=== PATIENT | male | born 1940 | race Caucasian/White ===

== ENCOUNTER 2019-11-13 16:45 | Inpatient (IN) | payer OTHER ==
[~2019-11-13] VITALS: Ht 180.3 cm; Wt 193.7 kg
[~2019-11-13 16:45] MED LIST: ALLOPURINOL 30300 M2 PO; ASPIR 8181 M1 PO; COREG6.25 MG PO; COUMADIN 5 MG TA5 M1 PO; DIGOXIN250 MCG PO; EFFEXOR XR37.5 MG PO; ENTRESTO 24 MG1 EACH PO; FLOMAX0.4 MG PO; HYDROCODON-ACE1 EAC7 PO; K-DUR 20 MEQ T20 MEQ PO; LASIX 40 MG TAB40 M2 PO; MAGOX 400400 MG PO; MOBIC15 MG PO; OMEPRAZOLE40 MG PO; PREDNISONE10 MG PO; XANAX 0.5 MG0.5 MG PO
--- NOTE | 2019-11-13 17:21 | NUR ---
PATIENT ARRIVED ON UNIT AT 1600 WITH EMT'S - SLEEPING AT THE TIME. CALM AND QUIET. HAD LOOSE STOOL MOVEMENT AND STAFF CLEANED PATIENT UP - SKIN INTACT - ECCYMOSIS BRUISING BILATERALLY ON BOTH UPPER EXTREMITIES. PATIENT BROUGHT UP TO UNIT BYPASSING [facility]. COVID TESTING NOT DONE AT OUR FACILITY. PATIENT AWOKE AND HAD DINNER - ALERT TO SELF - ANSWERED SEVERAL QUESTIONS BUT THOUGHT PATTERN JUMBLED.
[2019-11-13 18:24] VITALS: BP 146/87
[2019-11-13 19:21] VITALS: BP 118/74
--- NOTE | 2019-11-14 00:13 | NUR ---
Assumed care of patient this pm shift. Patient in good spirits showing no signs of aggression. Patient was sitting in mileu during assessment. Patient denies hi/si. Patient is continent. Patients assessment shows clear breath sounds, active bowel sounds, and irregular heart rhythm. S1 s2 heard with auscultation. Patient was surprised to learn that he was staying the night. Patient shares some interesting stories with RN. Patient is alert and oriented to self and time. Patient is dressed neatly in clean clothes. We will continue to monitor.
[2019-11-14 08:39] LABS: CALCIUM 9.3 mg/dL (8.5-10.1); CREATININE 1.5 mg/dL (0.7-1.3); POTASSIUM 3.9 mmol/L (3.5-5.1)
--- NOTE | 2019-11-14 14:16 | NUR ---
PATIENT HAS BEEN AMBULATING AROUND - ALERT TO SELF - WANDERS INTO OTHERS ROOMS. EASILY REDIRECTED. AFFECT PLEASANT AND MOOD SMILING. PATIENT DOES NOT UNDERSTAND WHAT IS CONVEYED TO HIM. HAS KNEE DISCOMFORT AND NEEDS MONITORING TO UTILIZE WALKER - STAFF NOTICED ONE KNEE GAVE OUT WHILE WALKING. PATIENT TAKES MEDICATIONS WHOLE WITH VANILLA PUDDING. APPETITE POOR - RESTLESS - STAFF HAS BEEN ENCOURAGING TO SIT IN DINING AREA AND WATCH TV. CALLED AND HE SPOKE TO HER FOR SHORT TIME. CONVERSATION WENT WELL.
--- NOTE | 2019-11-14 16:25 | NUR ---
FACUNDO obtained hx from pt's daughter Dipti and Cara. Cara is pt's dpoa and has okayed for pt's care to be discussed with Dipti. Pt lives at home with his and sis n law, and has been aggressive with especially his . 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 He sometimes gets HH services through [facility], and Dipti said if he needs HH services again that is the provider they choose. SW team will continue to follow pt during his stay on this unti.
[2019-11-14 19:53] VITALS: BP 111/75
[2019-11-14 19:55] VITALS: BP 111/75
--- NOTE | 2019-11-14 21:05 | H ---
[facility] [address] [place] [address] HISTORY AND PHYSICAL Name: MALOU PITT Room #: 526A-A ADM IN M.R.#: [id number] Admission: 11/13/19 Attend Phys: Leroy Hedrick DO Discharge: Date of : 40 Report #: [id number] THIS REPORT FOR: cc: Kim Davenport MD,Kim Hedrick,Leroy Pollack DO ~ CC: Leroy Davenport DATE OF SERVICE: 11/13/2019 INPATIENT PSYCHIATRIC EVALUATION Date of admission and transfer from [facility] is 11/13/2019 ATTENDING PHYSICIAN: Leroy Hedrick DO. GANG LEADER: Dr. Curtis. SOURCES OF INFORMATION: Chart from [facility], brief interview with the patient, telephone conversation with his and daughter, Dipti. Time spent on this case exceeded 100 minutes, greater than 50% was review of records, coordination of care. HISTORY OF PRESENT ILLNESS: This is a 78-year-old male with a history of dementia, dating back approximately 8-9 years, who came to the [facility] ED on 11/06/2019 via EMS complaining of altered mental status, onset 3 days ago. EMS stated the patient had been having hallucinations and poor appetite. The patient was unable to answer how he was in the ER, where he came from. The patient's daughter, Dipti, stated that the patient is normally alert and oriented x 3. The patient started new medication recently and daughter thinks that could be the cause of the current events. The patient was noted to be weak for 2-4 days' duration. In speaking with the daughter today on the phone, the patient has been seeing bugs, change in size for about the last year, he is going blind. He has 2 different eye diseases, he sees unseen others and objects such as cows in the field. The and daughter describes that the patient having a massive heart operation 10 years ago, which included an ablation, aortic valve replacement, mitral valve repair and quintuple bypass surgery done at [facility]. Compounding things 6 months prior to the massive heart operation, his son of heart related on 07/21/2010. EDUCATIONAL HISTORY: The patient has a ninth grade education. He has no history of stroke. PAST MEDICAL HISTORY: Medical problems from the records at [facility] [address] [place] [address] HISTORY AND PHYSICAL Name: MALOU PITT Room #: 526A-A [facility] IN [facility]#: [id number] Admission: 11/13/19 Attend Phys: Leroy Hedrick DO Discharge: Date of : 40 Report #: [id number] CHF, systolic left ventricular ejection fraction 25%, 07/2018. Coronary artery disease, hypertension, pacemaker and defibrillator 04/2017, history of AFib, history of 3 stents prior to 2010. He has had a left knee replacement, plate in left hand, history of C. diff with fecal implant, psychiatric history of depression and anxiety, CKD stage 4, pulmonary hypertension, transaminitis. ALLERGIES: NOTED TO BE HALOPERIDOL, AMIODARONE, METAXALONE, SPIRONOLACTONE, STATINS, SULFA DRUGS. REVIEW OF SYSTEMS: I was unable to get a comprehensive review of systems from the patient. The patient was seen by Dr. Matos, Neurology, who wanted the patient to get neuropsych testing. He refused medication last night, so did not take Seroquel 50 mg or melatonin 3-5 mg. LABORATORY DATA: His blood cultures x [address] [facility]. Laboratories from [facility] from 11/12/2019, H and H 12.0 and 36.1, white count 8.6, platelet count 184. Sodium 143, potassium 3.4, chloride 105, bicarbonate 31, anion gap 7, BUN 19, creatinine 1.3. Estimated GFR 53, glucose 85, calcium 8.3, total bilirubin 1.2, AST 18, ALT 18, alkaline phosphatase 85, total protein 6.0, albumin 3.2. NT-proBNP last done 05/21/2019 was 4074. Urinalysis this admission on 11/08/2019 had some positive mucous casts, few bacteria, rbc's, trace leukocyte esterase, 3+ blood. Toxicology, digoxin was initially elevated at 2.4 and then was 1.7 and it was discontinued. MEDICATIONS: Medications the patient was on at [facility] include cholestyramine, lactobacillus, Seroquel which he apparently did take on 11/12/2019, tamsulosin 0.4 mg daily, Xarelto 15 mg daily, venlafaxine 37.5 mg daily, thiamine, probiotic, prednisone, potassium chloride, nitroglycerin, Coreg, allopurinol. Currently, the patient's medications at [facility] are Xarelto 15 mg p.o. daily, Effexor XR 37.5 mg p.o. daily, tamsulosin 0.4 mg p.o. daily, allopurinol 300 mg p.o. daily, prednisone 10 mg p.o. with breakfast, Coreg 3.125 mg b.i.d. with meals, potassium chloride 20 mEq p.o. b.i.d., otherwise are standard house PRNs. Dr. Curtis saw the patient evidently late today and has not put in a note at this point. PHYSICAL EXAMINATION: VITAL SIGNS: Right now, temperature 36.8, pulse 84, respirations 18, BP 118/74, O2 sat 95% on room air. MUSCULOSKELETAL: Normal gait and station. MENTAL STATUS EXAMINATION: This is a well-developed, ill-appearing male, appearing stated age. Attention limited. Concentration limited. Speech is normal rate. The patient was not oriented to most aspects of time, to place, poorly to situation. Denied SI or HI. Denied auditory, visual, or tactile [address] [address] HISTORY AND PHYSICAL Name: SWEETIEMALOU Maykel Room #: 526A-A [facility] IN ..#: [id number] Admission: 11/13/19 Attend Phys: Leroy Hedrick DO Discharge: Date of : 40 Report #: [id number] hallucinations. Memory not formally tested. Insight limited. Judgment limited. Mood and affect were congruent, happy, euthymic. Fund of knowledge below average. FORMULATION: A 78-year-old male transferred from [facility] for reported behavioral problems including continued confusion, impulsivity. PLAN: Evaluate, stabilize, obtain collateral. I spoke with the daughter, Dipti, at length. I have asked the hospitalist to decide if the patient needs Lasix. According to the daughter, he takes 80 mg a day scheduled. Regarding the psychiatric concerns, on a prescribed alprazolam form at this time. He has an allergy to HALDOL. I think we will try a low dose of scheduled Seroquel for delirium treatment. We will start on 12.5 mg 3 times a day. The goal of family is the patient to return home -daughter and are not interested in placement. STRENGTHS: He is insured, supportive family. WEAKNESSES: Very advanced physical disease including combined valvular disease, coronary artery disease, congestive heart failure. We will order a heart-healthy diet for him, so it is low in sodium. Again time spent on this case is greater than 100 minutes. <ELECTRONICALLY SIGNED> By: Leroy Hedrick DO 11/14/192104 51 24 Leroy Hedrick DO /nt
--- NOTE | 2019-11-15 03:43 | NUR ---
11-14-19 care transfered at 1914; 1954 Pt sitting in day room with eyes open. PT AAOx1, pt clam, pleasant, skin w/d. Observed pt gait and slow and unsteady and noted tremors UE, bi-lat. Pt denies pain and SI/HI. Approximately 2230 BINGO CLERK and librarian helper brouht to my attention that pt had a skin tear, noted left upper arm distal, superficial skin tear approximatley 3.5cm benjamin zero depth, scant amount of sanguineous drainage. Cleaned wound with NS and apply sterile dressing to wound. Several attempts to take pt to bed, pt refused to go to bed. Pt was placed in recliner and covered with blanket in day room. Please refer to nursing interventions for more information. Zero acute distress noted.
[2019-11-15 07:26] VITALS: BP 123/73
[2019-11-15 09:12] VITALS: BP 123/73
--- NOTE | 2019-11-15 09:18 | NUR ---
ASSUMED CARE AT 0700 THIS MORNING. PT. STABLE. HE IS SITTING IN A ADRIÁN CHAIR. HE IS SITTING WITH HIS EYES CLOSED AT BREAKFAST. STAFF ASSISTING HIM TO EAT HIS MEAL. MEDICATIONS CRUSHED AND PUT IN YOUGART. HE TOOK THEM WITHOUT PROBLEMS.
--- NOTE | 2019-11-15 10:42 | NUR ---
Nutrition: pt admitted to [facility] unit with increased confusion, agitation and hallucinations. Notified of low safia score. Skin is intact but with bilateral ecchymosis/bruising to upper extremities. Current weight 427# is error and nsg will re-weigh today. Wts per hx in 2017 were 198#. Unable to interview pt due to current state. PO as been highly variable from refuse to 100% since admi on 11/12. Nsg reports needs fed, ate 50% breakfast this am. RD will offer ensure pudding or magic cup on trays due to suboptimal intake at times which is likely related to current condition. Will follow weight/po trends. Place as low nutrition risk.
[2019-11-15] MEDS ORDERED: XARELTO15 MG PO (11:00)
[2019-11-15] MEDS ORDERED: CARVEDILOL3.125 MG PO (11:00)
[2019-11-15] MEDS ORDERED: SEROQUEL 25 MG25 M1 PO (11:01)
--- NOTE | 2019-11-15 21:53 | D ---
[facility] [address] [place] [address] DISCHARGE SUMMARY Name: MALOU PITT Room #: 526A-A [facility] IN M.R.#: [id number] Admission: 11/13/19 Attend Phys: Leroy Hedrick DO Discharge: 11/15/19 Date of : 40 Report #: [id number] THIS REPORT FOR: cc: Kim Davenport MD,Kim Hedrick,Leroy Pollack DO ~ THIS REPORT FOR: //name// CC: Leroy Davenport DATE OF SERVICE: 11/15/2019 INPATIENT PSYCHIATRIC DISCHARGE SUMMARY ATTENDING PHYSICIAN: Leroy Hedrick DO AIRCRAFT PILOT: Dr. Curtis. 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 MEDICAL COMORBIDITIES: The patient has numerous medical comorbidities including probable acute systolic heart failure, last EF 25-30%, hypertension, acute on chronic renal failure, hypokalemia. DISCHARGE PLAN: The patient is discharging to the general medical floor at [facility]. He also meant to say has a fever, temperature 99.8 this morning. DIET: 2 gram sodium a day, heart healthy. ACTIVITY LEVEL: As tolerated. DISCHARGE MEDICATIONS: Rivaroxaban, which is Xarelto 15 mg p.o. daily with dinner and Coreg 3.125 mg p.o. b.i.d.; Seroquel 25 mg at 0900, 1500, 2100 hours; potassium chloride 20 mEq p.o. b.i.d.; sacubitril/valsartan 24/26 mg 1 tab p.o. b.i.d., allopurinol 300 mg p.o. daily, prednisone 10 mg p.o. daily, tamsulosin 0.4 mg p.o. daily. The patient's prednisone is for reportedly an autoimmune condition. DISCHARGE LABORATORY DATA: Within normal limits except BUN 32, creatinine 1.6, glucose 126, total bilirubin 1.1, ALT 17, CRP 126.9, NT-proBNP 11,211, total protein 6.8, albumin 3.4, vitamin B12 of 772, folate 51.5, TSH 0.746. REASON FOR ADMISSION: Transferred from [facility] due to confusion, [facility] [address] [address] DISCHARGE SUMMARY Name: MALOU PITT Room #: 526A-A [facility]#: [id number] Admission: 11/13/19 Attend Phys: Leroy Hedrick DO Discharge: 11/15/19 Date of : 40 Report #: [id number] agitation at times, concern for behavioral disturbance and dementia. HOSPITAL COURSE: The patient was admitted to the Geriatric Psychiatry Unit. It was initially attempted to only order essential medications, as I wanted to see how the patient tolerated these and behavior. He was really only on the unit for 1 full day where he was pleasant, in no distress. This morning, temperature 99.[address] Curtis was paged to evaluate for coronavirus concerns. There was also a concern of somewhat lung sounds, even though there were not overt signs of congestive heart failure. PHYSICAL EXAMINATION: VITAL SIGNS: At time of discharge today, temperature 37.7, pulse 76, respirations 24, BP 123/73, O2 sat 93%. MUSCULOSKELETAL: Gait not tested, disheveled with atrophy, seen in Pat chair. MENTAL STATUS EXAMINATION: This is a well-developed, ill-appearing male apparently stated age. Attention fair. Concentration impaired. Speech slightly slowed. Thought process linear and very limited. Thought content, poverty of thought. Some psychomotor agitation, no psychomotor retardation. Unable to test fully for SI or HI, or overt hallucinations. Insight limited. Judgment limited. Fund of knowledge is impaired. PROGNOSIS: For this patient is guarded given her degenerative disease, multiple medical morbidities. I did call the patient's daughter, Dipti, to discuss his transfer to the medical floor. She indicated she definitely wanted the patient to be DNR at this point. She also indicated that she wanted him to be on such things as the probiotic, alprazolam. I texted Dr. Curtis the daughter's number. She has called her and has squared the things away for his medical admission. I will be happy to consult on the patient once his coronavirus concern is ruled out to provide consultation liaison psychiatry. <ELECTRONICALLY SIGNED> By: Leroy Hedrick DO 11/15/19 2153 [id number] 19 Leroy Hedrick DO /nt
== END 2019-11-15 13:11 | disposition home health service (06) | DRG 884 ==
LOC: SBH 16:45
PROVIDERS: Nurse Practitioner Family; ADMIT Psychiatry & Neurology Psychiatry
DX: F01.51 Vascular dementia, unspecified severity, with behavioral disturbance (principal); N17.9 Acute kidney failure, unspecified; I50.21 Acute systolic (congestive) heart failure; I13.0 Hypertensive heart and chronic kidney disease with heart failure and stage 1 through stage 4 chronic kidney disease, or unspecified chronic kidney disease; I25.10 Atherosclerotic heart disease of native coronary artery without angina pectoris; I48.91 Unspecified atrial fibrillation; N18.2 Chronic kidney disease, stage 2 (mild); E87.6 Hypokalemia; N40.0 Benign prostatic hyperplasia without lower urinary tract symptoms; Z96.652 Presence of left artificial knee joint; F32.9 Major depressive disorder, single episode, unspecified; F41.9 Anxiety disorder, unspecified; I25.2 Old myocardial infarction; Z88.8 Allergy status to other drugs, medicaments and biological substances; Z95.810 Presence of automatic (implantable) cardiac defibrillator; Z88.1 Allergy status to other antibiotic agents; Z88.2 Allergy status to sulfonamides; Z87.891 Personal history of nicotine dependence; Z95.5 Presence of coronary angioplasty implant and graft
CPT/HCPCS: 10880

== ENCOUNTER 2019-11-15 12:32 | Inpatient (IN) | payer OTHER ==
[~2019-11-15] VITALS: Ht 170.2 cm; Wt 81.7 kg
[~2019-11-15 12:32] MED LIST changes: +CARVEDILOL3.125 MG PO; +SEROQUEL 25 MG25 M1 PO; +XARELTO15 MG PO
[2019-11-15 13:35] VITALS: BP 113/61
[2019-11-15 13:36] VITALS: BP 113/61
[2019-11-15 14:58] LABS: HEMATOCRIT 34.8 % (42.0-52.0); HEMOGLOBIN 11.5 gm/dL (14.0-18.0); MCH 30.3 pg (26.0-34.0); MCHC 32.9 g/dL (28.0-37.0); MCV 92.2 fL (80.0-100.0); PLATELET COUNT 198 thou/uL (150-400); RBC 3.78 mil/uL (4.50-6.00); WBC 8.5 thou/uL (4.0-11.0)
[2019-11-15 15:24] LABS: ALBUMIN 3.4 g/dL (3.4-5.0); CALCIUM 9.1 mg/dL (8.5-10.1); CREATININE 1.6 mg/dL (0.7-1.3); POTASSIUM 4.4 mmol/L (3.5-5.1); TOTAL BILIRUBIN 1.1 mg/dL (<0.1-1.0); TOTAL PROTEIN 6.8 g/dL (6.4-8.2)
[2019-11-15 15:43] LABS: ABSOLUTE NEUTROPHILS 6.9 thou/uL (1.4-8.2); PLATELET ESTIMATE NORMAL
[2019-11-15 15:55] LABS: TSH 0.746 uIU/mL (0.358-3.740)
[2019-11-15 16:28] LABS: FOLIC ACID 51.5 ng/mL (8.6-58.9)
[2019-11-15 21:00] VITALS: BP 113/70
[2019-11-15 23:45] VITALS: BP 114/64
[2019-11-16 04:10] VITALS: BP 108/60
--- NOTE | 2019-11-16 05:30 | NUR ---
PT MAKING SLOW PROGRESS TOWARDS GOALS. LUNGS CTA, DIMINISHED THROUGHOUT THE NIGHT. NO COUGH NOTED. PT INCREASED WOB NOTED WHEN PT OBSERVED WALKING TO THE TOILET OR SPEAKING.
[2019-11-16 08:38] VITALS: BP 97/55
[2019-11-16 10:52] LABS: CALCIUM 8.7 mg/dL (8.5-10.1); CREATININE 1.6 mg/dL (0.7-1.3)
[2019-11-16 10:56] LABS: POTASSIUM 3.2 mmol/L (3.5-5.1)
--- NOTE | 2019-11-16 12:44 | 2DMMODE ---
[facility] [place] [address] 2 D/M-MODE ECHOCARDIOGRAM Name: MALOU PITT Maykel Room #: 359-P ADM IN M.R.#: [id number] Admission: 11/15/19 Attend Phys: Jesus Alberto Curtis MD Discharge: Date of : 40 Report #: [id number] THIS REPORT FOR: cc: Kim Davenport MD, Pamela MD Lammoglia, Francisco J. MD ~ APPROVED REPORT Study performed: 11/16/2019 09:41:40 EXAM: Comprehensive 2D, Doppler, and color-flow Echocardiogram Patient Location: Bedside Room #: 359 Status: routine BSA: 1.97 HR: 105 bpm BP: 97/55 mmHg Rhythm: Atrial Fibrillation Other Information Study Quality: Good Indications ICD: Congestive Heart Failure Prosthetic Valve Atrial Fibrillation CAD Cardiomyopathy AVR 2D Dimensions RVDd: 52.55 mm IVSd: 10.66 (7-11mm) LVOT Diam: 25.09 (18-24mm) LVDd: 63.08 mm PWd: 9.14 (7-11mm) Ascending Ao: 35.41 (22-36mm) LVDs: 59.97 (25-40mm) Aortic Root: 33.19 mm IVC: 26.00 mm Volumes Left Atrial Volume (Systole) Single Plane 4CH: 116.64 mL Single Plane 2CH: 94.10 mL LA ESV Index: 56.00 mL/m2 [facility] [address] 2 D/M-MODE ECHOCARDIOGRAM Name: MALOU PITT Room #: 359-P ADM IN ..#: [id number] Admission: 11/15/19 Attend Phys: Rex Hook Discharge: Date of : 40 Report #: [id number] Aortic Valve AoV Peak Brooks.: 2.16 m/s AO Peak Gr.: 18.62 mmHg Pulmonary Valve PV Peak Brooks.: 0.87 m/s PV Peak Gr.: 3.11 mmHg Tricuspid Valve TR Peak Brooks.: 2.61 m/s TR Peak Gr.: 27.45 mmHg PA Pressure: 37.00 mmHg Left Ventricle Left ventricle is dilated. There is Severe global hypokinesis of the left ventricle. There is normal left ventricular wall thickness. Left ventricular ejection fraction is severely decreased. LVEF is 20-25%. This study is not technically sufficient to allow evaluation of the LV diastolic function due to atrial fibrillation. Right Ventricle Right ventricle is dilated. Right ventricle is hypokinetic. Device lead is present in the right ventricle. Atria Left atrium is dilated. Right atrium is dilated. Device lead is present in the right atrium. Aortic Valve Bioprosthetic aortic valve is present. No aortic regurgitation is present. There is no aortic valvular stenosis. Mitral Valve The mitral valve is normal in structure. Mild mitral regurgitation. No evidence of mitral valve stenosis. Tricuspid Valve The tricuspid valve is normal in structure. There is mild tricuspid regurgitation. Estimated PAP 37 mmHg. There is mild pulmonary hypertension. Pulmonic Valve The pulmonary valve is normal in structure. Trace pulmonic regurgitation. Great Vessels The aortic root is normal in size. IVC is dilated and collapses [facility] [address] [place] [address] 2 D/M-MODE ECHOCARDIOGRAM Name: MALOU PITT Room #: 359-P ADM IN [facility].#: [id number] Admission: 11/15/19 Attend Phys: Rex Hook Discharge: Date of : 40 Report #: [id number] <50% with inspiration. Pericardium There is no pericardial effusion. <Conclusion> Left ventricle is dilated. LVEF is 20-25%. There is Severe global hypokinesis of the left ventricle. Right ventricle is dilated. Right ventricle is hypokinetic. Device lead is present in the right ventricle. Left atrium is dilated. Right atrium is dilated. Device lead is present in the right atrium. Bioprosthetic aortic valve is present. There is no aortic valvular stenosis. The mitral valve is normal in structure. Mild mitral regurgitation. The tricuspid valve is normal in structure. There is mild tricuspid regurgitation. Estimated PAP 37 mmHg. There is mild pulmonary hypertension. There is no pericardial effusion. <ELECTRONICALLY SIGNED> By: Raheem Nair MD 11/16/19 1242 D: [id number] Raheem Nair MD /INF
[2019-11-16 12:55] VITALS: BP 90/54
--- NOTE | 2019-11-16 14:09 | NUR ---
INITIAL ASSESSMENT: FACUNDO reviewed chart and spoke with nursing and attending physician. Pt was admitted from [facility] yesterday due to fever. Pt is in Enhanced Isolation to r/o COVID-19. Pt's test did come back negative. FACUNDO spoke with pt's , Cara, via phone. Introduced role of SW. Pt and live at home in [place], [place]. Pt is normally independent with ADLs and uses a walker. There are 3 steps to enter from the front porch. No steps inside on the ground level. There are stairs to go down to the basement. Pt does not go down the basement. The door is locked. Pt has used [facility] in the past and would like to use them again. Pt's PCP is Dr. Kim Davenport at [facility]. Pt's states that she makes sure pt is on a low sodium diet at home. ST has evaluated pt and recommends pt be on a mechanical soft/regular liquid diet. Pt's family would prefer pt return home with HH upon discharge. Pt's family does not want pt to return to [facility]. FACUNDO also spoke with pt's dtr, Dipti, via phone to discuss and confirm discharge plan. financial planner to fax referral to [facility] for review. Anticipate discharge home in 1-2 days. Pt's family will be able to provide transportation home. FACUNDO is following to assist as needed with discharge planning.
--- NOTE | 2019-11-16 15:09 | NUR ---
ASSUMED PATIENT CARE AT 0700. ALERT, CONFUSED. BP ON SOFT SIDE. NOFIFED CARDIOLOYG. SOB WITH EXERTION. COVID NEGATIVE. FAMILY UPDATED. PROGRESSING TOWARDS POC GOALS. WILL TRANSFER TO [facility] SOON.
--- NOTE | 2019-11-16 15:30 | NUR ---
FAXED REFERRAL TO [facility] SPOKE WITH [facility] IN INTAKE THEY RECEIVED REFERRAL AND CAN ACCEPT POSS DC TOMORROW.
[2019-11-16 15:50] VITALS: BP 120/68
--- NOTE | 2019-11-16 16:30 | NUR ---
15:54 RECIEVED REPORT FROM [facility]SH[facility]. 16:10 PT. ARRIVED ON OUR UNIT, ALERT WITH GENERAL CONFUSIN ABOUT HIS LOCATION GLOBALLY. DENIES CHEST PAIN, NO SHORTNESS OF BREATH OBSERVED. IV SITE FLUSHED AND HEP LOCKED NOW, NO SIGN'S OF INFILTARTION OBSERVED.
[2019-11-16 19:56] VITALS: BP 109/60
[2019-11-17 04:55] VITALS: BP 134/67
[2019-11-17 05:53] LABS: CALCIUM 8.7 mg/dL (8.5-10.1); CREATININE 1.6 mg/dL (0.7-1.3); POTASSIUM 3.5 mmol/L (3.5-5.1)
--- NOTE | 2019-11-17 05:59 | NUR ---
ASSUME CARE 1900. VITALS STABLE. A/O TO PERSON AND SOMETIMES TO PLACE. PT IS VERY CONFUSED AND IMPULSIVE. DENIES ANY PAIN. TOLERATES ACTIVITY WELL. ASSESSMENT CHARTED. PROGRESSING MODERATELY TO PLAN OF CARE. VPACED ON MONITOR. PATIENT IS CLINICALLY STABLE. PLAN IS TO CONTINUE TO DIURESE PATIENT AND MONITOR LEVEL OF CONSCIOUSNESS. WILL CONTINUE TO MONITOR AND FOLLOW WITH POC
[2019-11-17 08:05] VITALS: BP 95/44
--- NOTE | 2019-11-17 08:26 | NUR ---
REC REPORT AT SHIFT CHANGE: LITERALLY, ALBEIT GENTLY, STRUGGLED WITH NURSE TRYING TO MAINTAIN SAFETY AND KEEP HIM FROM CONSTANTLY GETTING UP. PT REMOVED IV, NURSE STARTED ANOTHER. THIS A.M. PT KEPT GETTING UP OUT OF THE CHAIR UNATTENDED, INSERT MOLDING OPERATOR CAME TO ASK IF WE WERE GOING TO GET SOME KIND OF ADDITIONAL HELP TO MAINTAIN SAFETY PT KEPT GETTING UP. VERY CONFUSED ALERT TO SELF ONLY AT THIS TIME, DIDN'T KNOW HOW TO GET A DRINK, GENTLE COERCING, GAVE APPLESACE WITH A.M. XANAX. DR. REMY DIRECTED GIVING SEROQUEL NOW. LET PT KNOW I'D RETURN TO CHART IN ROOM AFTER TAKING CARE OF OTHER PTS CHAIR ALARM ON. COMM W/LIZ JORDAN RE: DR PRASAD ORDER FOR ONE ON ONE, LIZ JORDAN SAID 11:00. PHYSICIAN WILL CONTACT DR. HARDEN TO INQUIRE ABOUT HIS D/C DESTINATION
[2019-11-17] MEDS ORDERED: MELATONIN10 M3 PO (13:02)
[2019-11-17] MEDS ORDERED: LASIX 40 MG TAB40 M1 PO (13:02)
[2019-11-17 13:47] VITALS: BP 95/44
--- NOTE | 2019-11-17 13:52 | NUR ---
Pt dcing home with family today. HH orders faxed and confirmed with [facility]. Pt cleared by psych for dc home vs back to [facility].
[2019-11-17 17:49] VITALS: BP 95/44
--- NOTE | 2019-11-17 18:09 | NUR ---
PT HAS TELE AND IV REMOVED, STILL CONFUSED. ASKED PHYSICIAN X 2 FOR ORDER FOR SEROQUEL FAMILY WAS ASKING FOR IT. SAID HE RECEIVED IT FROM DR. CAPPS AT [facility] FROM WEDNESDAY. PT WILL SIGN PAPERS AND MEDS PICKED UP. FAMILY IS HERE AT ED. PT IS ALL READY TO GO
--- NOTE | 2019-11-17 18:47 | NUR ---
MET FAMILY OUT AT ED. NO ADDITIONAL SCRIPT, DR. REMY SAID IT DID NOT ORIGINATE HERE. EXPLAINED FAMILY'S HESITATION. SPOKE WITH FAMILY AFTER THEY LEFT AND THEY ASKED AGAIN IF RX WOULD BE AT PHARMACY. APOLOGIZED THAT I HADN'T HEARD FROM PHYSICIAN AGAIN YET HAD SENT ANOTHER MESSAGE THAT FAMILY WAS ON THEIR WAY TO PHARMACY. FAMILY STATED THEY CALLED THEIR PHYSICIAN AT [facility] AND ALSO THEIR EDUCATION AND TRAINING COORDINATOR THEN THANKED US FOR OUR CARES FOR THEIR DAD.
[2019-11-17] MEDS ORDERED: SEROQUEL 25 MG25 M1 PO (19:05)
== END 2019-11-17 18:30 | disposition home health service (06) | DRG 291 ==
LOC: 3W 12:32 → 2N 11-16 15:34
PROVIDERS: Nurse Practitioner; ADMIT Hospitalist
DX: I13.0 Hypertensive heart and chronic kidney disease with heart failure and stage 1 through stage 4 chronic kidney disease, or unspecified chronic kidney disease (principal); I50.23 Acute on chronic systolic (congestive) heart failure; I25.5 Ischemic cardiomyopathy; D72.829 Elevated white blood cell count, unspecified; I25.10 Atherosclerotic heart disease of native coronary artery without angina pectoris; I48.0 Paroxysmal atrial fibrillation; F32.9 Major depressive disorder, single episode, unspecified; F41.9 Anxiety disorder, unspecified; I73.9 Peripheral vascular disease, unspecified; N18.9 Chronic kidney disease, unspecified; E87.6 Hypokalemia; Z66 Do not resuscitate; G43.909 Migraine, unspecified, not intractable, without status migrainosus; Z95.0 Presence of cardiac pacemaker; Z95.1 Presence of aortocoronary bypass graft; Z95.2 Presence of prosthetic heart valve; Z82.49 Family history of ischemic heart disease and other diseases of the circulatory system; Z03.818 Encounter for observation for suspected exposure to other biological agents ruled out
CPT/HCPCS: 10081; 10779; 10879